=== PATIENT | female | born 1990 | race African-American/Black ===

== ENCOUNTER 2017-05-04 10:54 | Emergency (ER) | payer BC, OTHER ==
[~2017-05-04] VITALS: Ht 149.9 cm; Wt 113.0 kg
[~2017-05-04 10:54] MED LIST: MACR100C PO
[2017-05-04 11:01] VITALS: BP 148/98; PULSE 81; RESP 16; TEMP 99
[2017-05-04] MEDS ORDERED: birth control pill PO (11:26)
[2017-05-04 11:38] LABS: BLOOD, URINE LARGE (NEG); GLUCOSE,URINE NEG (NEG); KETONE, URINE NEG (NEG); METHOD OF COLLECTION CLEAN CATCH; NITRITE,URINE NEG (NEG); URINE COLOR YELLOW (YELLW/STRAW)
[2017-05-04 11:42] LABS: BACTERIA, URINE MOD /hpf; CULTURE IF INDICATED CULTURE INDICATED
[2017-05-04 11:43] LABS: COMMENT (UR) CULTURE INDICATED; COMMENT2 (UR) MUCOUS PRESENT; SQUAMOUS EPITHELIAL CELL URINE 0-5 /hpf (0-5)
[2017-05-04] MEDS ORDERED: CIPR-9 PO (12:05)
--- NOTE | 2017-05-04 12:06 | PD ---
HPI Chief Complaint: Complaint Time Seen by Provider: 12:03 Travel History International Travel<30 days: No Contact w/Intl Traveler<30days: No Traveled to known affect area: No History of Present Illness HPI Patient presents with concerns of urinary frequency and discomfort and hematuria. Denies nausea vomiting diarrhea or fever. Denies . Symptom onset 2-3 days. PFSH Past Medical History Anxiety: Yes Depression: Yes Diminished Hearing: No Genitourinary: Yes (hx of uti's) Hypertension: Yes (hx of HTN not taking medicaion) Tetanus Vaccination: Unknown Influenza Vaccination: No ?: Not LMP: ON CONTROL-04/13/17 : 0 Past Surgical History Section: Yes (x1) Social History Alcohol Use: Yes (SOCIAL, mix drinks, beer or wine) Tobacco Use: No Substance Use: Yes (states hx of smoking "weed") Allergies-Medications (Allergen,Severity, Reaction): Coded Allergies: No Known Allergies (Unverified Adverse Reaction, Unknown, 05/04/17) Reported Meds & Prescriptions Reported Meds & Active Scripts Active Reported [ control pill] 1 Tab PO DAILY Review of Systems Genitourinary: Positive: Urgency, Frequency, Dysuria, Hematuria Physical Exam Narrative GENERAL: Well-nourished, well-developed patient. SKIN: Focused skin assessment warm/dry. HEAD: Normocephalic. EYES: No scleral icterus. No injection or drainage. NECK: Supple, trachea midline. No JVD or lymphadenopathy. CARDIOVASCULAR: Regular rate and rhythm without murmurs, gallops, or rubs. RESPIRATORY: Breath sounds equal bilaterally. No accessory muscle use. GASTROINTESTINAL: Abdomen soft, non-tender, nondistended. MUSCULOSKELETAL: No cyanosis, or edema. BACK: Nontender without obvious deformity. No CVA tenderness. Data Data Last Documented VS Vital Signs Date Time Temp Pulse Resp B/P (MAP) Pulse Ox O2 Delivery O2 Flow Rate FiO2 05/04/17 11:20 16 05/04/17 11:01 99.0 81 148/98 (115) Orders Orders Urinalysis - C+S If Indicated (05/04/17 11:27) Ed Urine Pregnancytest Poc (05/04/17 11:27) Urine Culture (05/04/17 11:30) Labs Laboratory Tests Test 05/04/17 11:30 Urine Collection Type CLEAN CATCH Urine Color YELLOW Urine Turbidity SLIGHT Urine pH 6.0 Urine Specific [place]le 1.016 Urine Protein 30 mg/dL Urine Glucose (UA) NEG mg/dL Urine Ketones NEG mg/dL Urine Occult Blood LARGE Urine Nitrite NEG Urine Bilirubin NEG Urine Leukocyte Esterase SMALL Urine RBC 10-14 /hpf Urine WBC 25-49 /hpf Urine WBC Clumps MOD Urine Squamous Epithelial Cells 0-5 /hpf Urine Amorphous Sediment MOD Urine Bacteria MOD /hpf Microscopic Urinalysis Comment CULTURE INDICATED Urine Collection Time 1130 MDM Medical Decision Making Medical Screen Exam Complete: Yes Emergency Medical Condition: Yes Differential Diagnosis Nephritis, cystitis, UTI, vaginitis Narrative Course Assessment and plan discussed with patient at bedside. Urinalysis is positive for UTI. Diagnosis Primary Impression: UTI (urinary tract infection) Qualified Codes: N39.0 - Urinary tract infection, site not specified; R31.9 - Hematuria, unspecified Additional Instructions: Encouraged rest fluids and Motrin. Antibiotic as prescribed. Encouraged a cranberry supplement. Encouraged regular [place] exercises. Follow-up with PCP. Return emergent with any onset of new symptoms. Med/Other Pt SpecificInfo: Prescription(s) given Scripts Ciprofloxacin (Cipro) 500 Mg Tab 500 MG PO BID for Infection for 3 Days, #6 TAB 0 Refills Prov: Jai Olsen MD 05/04/17 Disposition: 01 DISCHARGE HOME Condition: Good Jai Olsen MD May 04, 2017 12:06
== END 2017-05-04 12:22 | disposition home or self-care (01) ==
LOC: PHED 10:54
DX: N39.0 Urinary tract infection, site not specified (principal); B96.4 Proteus (mirabilis) (morganii) as the cause of diseases classified elsewhere; R31.9 Hematuria, unspecified
CPT/HCPCS: 81001; 84703; 87077; 87086; 87186; 99283